=== PATIENT | male | born 1960 | race American Indian/Alaskan Native ===

== ENCOUNTER 2019-12-05 09:00 | Emergency (ER) | payer SELFPAY ==
[2019-12-05] MEDS ORDERED: SODIUM CHLORIDE 0.9% 500 ML 500 ML IV ONE (10:03)
[2019-12-05] MEDS ORDERED: MORPHINE 4 MG/1 ML INJ IV ONE (10:03)
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
[2019-12-05 11:06] LABS: Hematocrit 42.7 % (35.5-45.6); Mean Corpuscular HGB Conc 33 % (32-34); Mean Corpuscular Volume 85 fl (84-94); Platelet Count 239 K/mm3 (140-440); Red Blood Count 5.04 M/mm3 (3.65-5.03); Red Cell Distribution Width 15.3 % (13.2-15.2)
[2019-12-05 11:16] LABS: INR 1.04 (0.87-1.13)
[2019-12-05 11:23] LABS: Alanine Aminotransferase 20 units/L (7-56); Albumin 4.4 g/dL (3.9-5); BUN/Creatinine Ratio 21; Blood Urea Nitrogen 21 mg/dL (9-20); Calcium 9.9 mg/dL (8.4-10.2); Hemolysis Index 22
[2019-12-05 12:05] VITALS: BP 178/90
[2019-12-05] MEDS ORDERED: HYDROmorphone 1 MG/1 ML INJ IV ONE ×2 (12:06→13:20)
--- NOTE | 2019-12-05 12:11 | Vascular Lab Report ---
DUPLEX DOPPLER LOWER EXTREMITY ARTERIAL, BILATERAL INDICATION: Leg pain bilaterally for 2 days. Claudication. History of hypertension and smoking. TECHNIQUE: Arterial duplex examination of both lower extremities performed using B-mode, color flow and spectral Doppler assessment. FINDINGS: RIGHT: Common Femoral Artery: PSV 115 cm/sec. Triphasic waveform. Proximal SFA: PSV 130 cm/sec. Triphasic waveform. Mid SFA: PSV 117 cm/sec. Triphasic waveform. Distal SFA: PSV 174 cm/sec. Triphasic waveform. Popliteal artery: PSV 68 cm/sec. Biphasic waveform. Posterior tibial artery: PSV 82 cm/sec. Biphasic waveform. Dorsalis Pedis Artery: PSV 19 cm/sec. Biphasic waveform. LEFT: Common Femoral Artery: PSV 90 cm/sec. Triphasic waveform. Proximal SFA: PSV 118 cm/sec. Triphasic waveform. Mid SFA: PSV 125 cm/sec. Triphasic waveform. Distal SFA: PSV 93 cm/sec. Biphasic waveform. Popliteal artery: PSV 52 cm/sec. Triphasic waveform. Posterior tibial artery: PSV 82 cm/sec. Biphasic waveform. Dorsalis Pedis Artery: PSV 42 cm/sec. Biphasic waveform. Right FINA: Not measured. Left FINA: Not measured. IMPRESSION: 1. No significant lower extremity peripheral artery disease. Ankle-Brachial Index (FINA): * Calcified arteries > 1.4 * Normal = 0.9-1.4 * Mild PAD = 0.7-0.89 * Moderate PAD = 0.51-0.69 * Severe PAD < 0.5 Doppler Waveform: * Triphasic is normal. * Biphasic is abnormal if clear transition from triphasic signal along vascular tree. * Monophasic is abnormal. Signer Name: Saul Browne MD Signed: 12/05/2019 12:07 PM Workstation Name: [email or web address]
--- NOTE | 2019-12-05 13:33 | Cat Scan Report ---
CT angiogram of the abdomen and pelvis with contrast INDICATION: Abdominal pain and distention, leg pain and gluteal pain. TECHNIQUE: All CT scans at this location are performed using the following dose modulation technique: Automated exposure control. Helical slices were obtained through the abdomen and pelvis following the administr ation of 100 cc of Omnipaque 350. Coronal, sagittal, and axial reformatted images were obtained. COMPARISON: None available. FINDINGS: Aortogram: The abdominal aorta is normal in diameter. There is mild atherosclerotic calcification in the lower abdominal aorta. Atherosclerotic calcifications noted in the common iliac arteries and exte rnal iliac arteries. There is no hemodynamically significant stenosis. There is atherosclerotic calci fication in the internal iliac arteries well. Mesenteric arteries and renal arteries are patent witho ut stenosis. There is no dissection. ABDOMEN: There is dependent atelectasis in the lung bases. The liver, spleen, pancreas, adrenal gland s, and kidneys show no acute abnormality. There is symmetric excretion of contrast from the kidneys. Ureters fill normally with contrast. Small retroperitoneal nodes are identified. Not pathologically enlarged. Pelvis: There is sigmoid diverticulosis. There is no CT evidence of diverticulitis. The appendix is u nremarkable. There is no obstruction, inflammation, or free air. On review of bone windows, no acute osseous abnormalities are seen. IMPRESSION: 1. There are mild atherosclerotic calcifications in the aorta and iliac arteries. There is no hemodyn amically significant stenosis. There is no dissection. The aorta is normal in diameter. Signer Name: Vinayak Vargas MD Signed: 12/05/2019 1:28 PM Workstation Name: [id number]
[2019-12-05] MEDS ORDERED: KETOROLAC 30 MG/1 ML INJ IV ONE (14:07)
== END 2019-12-05 15:11 | disposition home or self-care (01) ==
LOC: ED 09:00
DX: R10.84 Generalized abdominal pain (principal); M54.10 Radiculopathy, site unspecified; M54.6 Pain in thoracic spine; G89.29 Other chronic pain; I10 Essential (primary) hypertension; F17.200 Nicotine dependence, unspecified, uncomplicated; Z79.1 Long term (current) use of non-steroidal anti-inflammatories (NSAID); Z79.899 Other long term (current) drug therapy
CPT/HCPCS: 36415; 74174; 80053; 82550; 83690; 83735; 85027; 85610; 93005; 93925; 96374; 96375; 96376; 99285; J1170; J1885; J2270; J7040; Q9967